=== PATIENT | male | born 1965 | race Caucasian/White ===

== ENCOUNTER 2017-04-01 20:28 | Emergency (ER) | payer BC, OTHER ==
[~2017-04-01] VITALS: Ht 172.7 cm; Wt 99.8 kg
[~2017-04-01 20:28] MED LIST: OLME40TA12 PO; [UNRECOGNIZED DRUG - REMARK]
[2017-04-01] MEDS ORDERED: ASPIRIN 81 MG TAB.CHEW PO ONE (20:45)
[2017-04-01] MEDS ORDERED: NITROGLYCERIN SUBLINGUAL 0.4 MG BOTTLE OF 25. SL PRN (20:45)
[2017-04-01 21:06] LABS: BASO # 0.1 x10^3/uL (0.0-0.2); BASO % 1 % (0-3); EOS % 0 % (0-3); HEMATOCRIT 52.5 % (39.0-53.0); HEMOGLOBIN 18.2 g/dL (13.0-17.5); LYMPH # 1.9 x10^3/uL (1.0-4.8); LYMPH % 18 % (24-48); MEAN CORPUSCULAR HEMOGLOBIN 32 pg (25-35); MEAN CORPUSCULAR HGB CONC 35 g/dL (31-37); MEAN CORPUSCULAR VOLUME 92 fL (79-100); MONO # 0.5 x10^3/uL (0.0-1.1); MONO % 5 % (0-9); NEUT # 8.2 x10^3uL (1.8-7.7); NEUT % 76 % (31-73); PLATELET COUNT 264 x10^3/uL (140-400); RED BLOOD COUNT 5.73 x10^6/uL (4.30-5.70); RED CELL DISTRIBUTION WIDTH 13.2 % (11.5-14.5); WHITE BLOOD COUNT 10.7 x10^3/uL (4.0-11.0)
[2017-04-01] MEDS ORDERED: methylPREDNISolone SOD SUCC PF 125 MG/2 ML VIAL. IV ONE (21:15)
[2017-04-01] MEDS ORDERED: GLUCAGON,HUMAN RECOMBINANT 1 MG KIT. IV ONE (21:15)
[2017-04-01] MEDS ORDERED: LIDO:MAALOX 1:1 20 ML SINGLE DOSE PO ONE (21:15)
[2017-04-01] MEDS ORDERED: ONDANSETRON PF 4 MG/2 ML VIAL. IV ONE (21:15)
[2017-04-01 21:17] LABS: ALBUMIN 4.1 g/dL (3.4-5.0); ALBUMIN/GLOBULIN RATIO 1.2 (1.0-1.7); CALCIUM 9.3 mg/dL (8.5-10.1); CREATININE 1.3 mg/dL (0.7-1.3); GFR 58.2; POTASSIUM 3.7 mmol/L (3.5-5.1); TOTAL BILIRUBIN 0.5 mg/dL (0.2-1.0); TOTAL PROTEIN 7.5 g/dL (6.4-8.2)
[2017-04-01] MEDS ORDERED: HYDROmorphone PF 2 MG/ML VIAL ONE (22:26)
[2017-04-01] MEDS ORDERED: FAMOTIDINE 20 MG/2 ML VIAL IVP ONE (22:30)
[2017-04-01] MEDS ORDERED: CONTRAST GIVEN MC PRN (22:30)
[2017-04-01] MEDS ORDERED: HYDROmorphone PF 1 MG/ML DISP.SYRIN IV ONE (22:30)
[2017-04-01] MEDS ORDERED: KETOROLAC 30 MG/ML VIAL. IV ONE (22:30)
[2017-04-01] MEDS ORDERED: IV NORMAL SALINE 1,000ML 1,000 ML IV SCH (22:30)
--- NOTE | 2017-04-01 22:38 | EKG ---
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
[2017-04-01] MEDS ORDERED: IOHEXOL 300 MG/ML 75 ML VIAL. IV ONE (23:00)
[2017-04-01] MEDS ORDERED: HYDROmorphone PF 2 MG/ML VIAL IV ONE (23:00)
--- NOTE | 2017-04-01 23:12 | RAD ---
CT scan of the abdomen and pelvis with contrast 04/01/2017 CLINICAL HISTORY: Epigastric pain with elevated lipase. TECHNIQUE: After the intravenous administration of 75 cc of Omnipaque 300 only, contiguous, 5 mm axial sections were obtained through the abdomen and pelvis. One or more of the following individualized dose reduction techniques were utilized for this study: 1. Automated exposure control. 2. Adjustment of the mA and/or kV according to patient size. 3. Use of iterative reconstruction technique. FINDINGS: Comparison study is dated 07/02/2014. Images through the lung bases demonstrate minimal dependent subsegmental atelectasis bilaterally. Small calcified granulomas are seen bilaterally. The liver parenchyma has a decreased attenuation consistent with mild fatty infiltration. The spleen, adrenal glands and kidneys are within normal limits. The pancreas is within normal limits. No focal abnormality of the pancreas is seen. No inflammatory changes are seen surrounding the pancreas. No abnormal fluid collection is seen to suggest evidence of a pancreatic pseudocyst. The abdominal aorta tapers normally. The gallbladder is slightly contracted. No free fluid or free air is within the abdomen. There is no evidence of bowel obstruction. Surgical clips are seen posterior to the cecum consistent with an appendectomy. Images through the pelvis demonstrate the urinary bladder distended with urine. No free fluid is seen. Small to moderate-sized fat-containing inguinal hernias are seen bilaterally. Minimal S-shaped curvature of the thoracolumbar spine is seen. Degenerative changes are seen involving the lower thoracic and throughout the lumbar spine. IMPRESSION: No acute abnormality is seen. Electronically signed by: Aj Hutson MD (04/01/2017 11:09 PM) [facility]
--- NOTE | 2017-04-01 23:55 | PHYS DOC ---
General Chief Complaint: CHEST PAIN Stated Complaint: SOB/CHEST PAIN Time Seen by MD: 20:36 Source: patient Exam Limitations: no limitations Problems: History of Present Illness Initial Comments Patient is a 51-year-old male complaining of chest and epigastric pain. Patient was initially reported by staff to me as chest pain, I was occupied by stephanie thomas so verbal chest pain orders initiated. Upon my evaluation patient states that on March 25 he had 2 bites of steak immediately after which he developed epigastric pain with foreign body sensation and an urge to vomit. He saw his primary care doctor who diagnosed viral gastroenteritis and constipation and gave magnesium citrate for symptomatic care as well as GI referral due to the patient's history of esophageal strictures. Symptoms were manageable and the patient tried to avoid solid foods. Patient states that on March 30 he had one bite of prime rib with recurrence of symptoms. He's been trying to manage at home and today about 1700 symptoms worsened again after a bite of crab salad. Symptoms are now described as constant and severe, he has a severe epigastric feeling of pain and foreign body sensation. He belches and retches almost constantly but has had no vomiting. He is tolerating his secretions, he becomes tachycardic and hypertensive when the symptoms worsen and had no relief with nitroglycerin sublingually on ED arrival. He says he feels "cleaned out" and has had loose stools due to the magnesium citrate. He denies diaphoresis arm or neck symptoms , no headache or focal neurologic deficits no chills sweats or myalgias. Timing/Duration: other Severity: severe Modifying Factors: worse with eating Associated Symptoms: chest pain, nausea/vomiting, other Allergies: Coded Allergies: No Known Drug Allergies (Unverified , 04/01/17) Past Medical History Medical History: GERD, hypertension, other (esophageal strictures) Surgical History: noncontributory Social History Smoker: non-smoker Alcohol: occasionally Drugs: none Review of Systems Constitutional: denies chills, denies diaphoresis, denies fever, denies malaise EENTM: denies ear pain, denies nose pain, denies throat pain, denies throat swelling, denies mouth pain, denies mouth swelling Respiratory: denies cough, shortness of breath, denies wheezing Cardiovascular: chest pain, denies palpitations, denies syncope Gastrointestinal: abdominal pain, nausea, denies vomiting Musculoskeletal: denies back pain, denies joint swelling, denies neck pain Psychiatric/Neurological: denies headache, denies numbness, denies paresthesia Physical Exam General Appearance: WD/WN, severe distress Eyes: bilateral eye PERRL, bilateral eye EOMI, bilateral eye other ( conjunctivae injected bilaterally) Ear, Nose, Throat: hearing grossly normal, normal ENT inspection, normal pharynx Neck: non-tender, full range of motion, supple Respiratory: chest non-tender, normal breath sounds, no respiratory distress Cardiovascular: normal peripheral pulses, regular rate, rhythm Gastrointestinal: normal bowel sounds, non tender, soft, no organomegaly Rectal: deferred Back: no CVA tenderness, no vertebral tenderness Extremities: non-tender, normal inspection Neurologic/Psychiatric: 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 Interpreted by me. AP chest: Increased perihilar markings with no focal consolidation or effusion interpreted by me. Lipase 542 otherwise unremarkable lab workup No relief with Solu-Medrol 125 mg, glucagon 1 mg, again. Zofran 4 mg, Toradol 30 mg, and Pepcid 20 mg given over time. Due to elevated lipase CT evaluation initiated. PATIENT: TANIYA BOWMAN ACCOUNT: [id number] : 1965 LOCATION: ER AGE: 51 SEX: M EXAM STATUS: REG ER ORD. PHYSICIAN: JEROD BREEN DO REASON: epigastric pain, n/v, elev lipase PROCEDURE: CT ABD PELV W/ IV CONTRST ONLY CT scan of the abdomen and pelvis with contrast 04/01/2017 CLINICAL HISTORY: Epigastric pain with elevated lipase. TECHNIQUE: After the intravenous administration of 75 cc of Omnipaque 300 only, contiguous, 5 mm axial sections were obtained through the abdomen and pelvis. One or more of the following individualized dose reduction techniques were utilized for this study: 1. Automated exposure control. 2. Adjustment of the mA and/or kV according to patient size. 3. Use of iterative reconstruction technique. FINDINGS: Comparison study is dated 07/02/2014. Images through the lung bases demonstrate minimal dependent subsegmental atelectasis bilaterally. Small calcified granulomas are seen bilaterally. The liver parenchyma has a decreased attenuation consistent with mild fatty infiltration. The spleen, adrenal glands and kidneys are within normal limits. The pancreas is within normal limits. No focal abnormality of the pancreas is seen. No inflammatory changes are seen surrounding the pancreas. No abnormal fluid collection is seen to suggest evidence of a pancreatic pseudocyst. The abdominal aorta tapers normally. The gallbladder is slightly contracted. No free fluid or free air is within the abdomen. There is no evidence of bowel obstruction. Surgical clips are seen posterior to the cecum consistent with an appendectomy. Images through the pelvis demonstrate the urinary bladder distended with urine. No free fluid is seen. Small to moderate-sized fat-containing inguinal hernias are seen bilaterally. Minimal S-shaped curvature of the thoracolumbar spine is seen. Degenerative changes are seen involving the lower thoracic and throughout the lumbar spine. IMPRESSION: No acute abnormality is seen. Electronically signed by: Aj Hutson MD (04/01/2017 11:09 PM) [facility] DICTATED AND SIGNED BY: AJ HUTSON MD DATE: 04/01/17 [id number] CC: MALVIN FERRERA MD; JEROD BREEN DO ~ Prior to CT evaluation patient did receive 0.5 mg Dilaudid intravenously. He says that while the feeling was still there while the medication was working "I didn't care." Upon discussing CT results symptoms had returned. The patient does not feel like he can tolerate these symptoms at home and it is unlikely EGD could be scheduled as outpatient in a timely manner. Patient is agreeable to transfer to [facility] for inpatient admission and symptomatic care with probable GI consultation. [id number]: I discussed the patient with animal surgeon hospitalist Dr. Berg. He agrees to accept the patient for MedSurg admission. Impressions: Esophageal foreign body sensation and possible partial obstruction Intractable pain and nausea History of esophageal strictures A second dose dilaudid given, ativan 1mg IV with analgesia 2L O2 NC applied as sats temporarily dropped after meds to 89%. Departure Disposition: 02 XFER SHT-TRM HOSP Condition: STABLE Additional Instructions: EMS transfer to [facility] for MedSurg admission Dr. Berg is accepting. JEROD BREEN DO Apr 01, 2017 23:55
[2017-04-02] VITALS: BP 145/100
[2017-04-02] MEDS ORDERED: LORazepam 2 MG/ML VIAL IV ONE (00:30)
--- NOTE | 2017-04-02 07:25 | RAD ---
Portable chest, 04/01/2017: History: Chest pain Comparison is made to a study from 07/02/2014. The heart size and pulmonary vascularity are normal. No pulmonary infiltrates are seen. There is no evidence of pleural fluid. IMPRESSION: No acute cardiopulmonary abnormality is detected.
== END 2017-04-02 01:05 | disposition short-term general hospital (02) ==
LOC: ER 20:28
DX: T18.128A Food in esophagus causing other injury, initial encounter (principal); R10.13 Epigastric pain; I10 Essential (primary) hypertension; K21.9 Gastro-esophageal reflux disease without esophagitis; X58.XXXA Exposure to other specified factors, initial encounter; Y93.89 Activity, other specified; Y99.8 Other external cause status; Y92.89 Other specified places as the place of occurrence of the external cause
CPT/HCPCS: 36415; 71045; 74177; 80053; 82150; 82550; 83690; 83880; 84484; 85025; 85379; 93005; 96361; 96374; 96375; 99285; J1170; J1610; J1885; J2060; J2405; J2930; Q9967; S0028; J7030

== ENCOUNTER → 2017-04-13 | Outpatient (CLI) | payer BC ==
[2017-04-02] VITALS: BP 145/100
--- NOTE | 2017-04-13 13:35 | RAD ---
CT maxillofacial without contrast 04/13/2017 Clinical indication: Sinusitis. Comparison: None. Technique: Multiple CT images of the maxillofacial region were obtained without contrast. PQRS Compliance Statement: One or more of the following individualized dose reduction techniques were utilized for this examination: 1. Automated exposure control 2. Adjustment of the mA and/or kV according to patient size 3. Use of iterative reconstruction technique Findings: There is mild right maxillary sinus mucosal thickening with dependent aerated secretions. There is opacification of the right maxillary ostium, though the infundibulum and hiatus semilunaris remain patent. Left maxillary, ethmoid, frontal and sphenoid sinuses are well aerated. The mastoid air cells are well aerated. The left ostiomeatal unit is patent. There is a right middle korina bullosa noted. The globes and orbits are unremarkable. The intraconal fat is preserved. The intraocular muscles are symmetric. Impression: 1. Mild right maxillary sinus mucosal thickening with aerated secretions may represent acute sinusitis. 2. Opacification of the right maxillary ostium.
== END | disposition home or self-care (01) ==
LOC: CT 11:01
PROVIDERS: ATTEND Otolaryngology
DX: J32.0 Chronic maxillary sinusitis (principal); I10 Essential (primary) hypertension
CPT/HCPCS: 70486

== ENCOUNTER 2018-11-18 20:52 | Emergency (ER) | payer BC ==
[~2018-11-18] VITALS: Ht 172.7 cm; Wt 94.5 kg
--- NOTE | 2018-11-18 21:13 | PHYS DOC ---
Past History Past Medical History: GERD, Hypertension Past Surgical History: Appendectomy Smoking: Non-smoker, Chew Additional Smoking Information: chews tobacco Alcohol Use: Heavy Additional Alcohol Information: everyother day half a glass of vodka Drug Use: None Adult General Chief Complaint Chief Complaint: DYSPNEA/RESPIRATOY DISTRESS HPI HPI Patient is a 53-year-old male, with a history of hypertension and GERD, who presents to the emergency department for evaluation. He states for the past 9 days, he has had a sensation that something is closing up inside his chest in his throat. He does report some generalized pain in his midsternal area, which has been present for the past 9 days. He saw his PCP 2 days ago and was diagnosed with a sinus infection, and when he did not improve, was prescribed Augmentin yesterday. He has had some nasal congestion, but no significant cough. He denies any pleuritic or exertional pain. Prior to arrival he took her family members nitroglycerin as well as some Benadryl, and somewhat sleepy after taking the Benadryl, but his states that this is more sleepy than he normally would be in response to Benadryl. He has not had any fevers or chills, numbness, or weakness. There are no alleviating or exacerbating factors to his symptoms otherwise. Review of Systems Review of Systems Constitutional: Denies fever or chills [] Eyes: Denies change in visual acuity, redness, or eye pain [] HENT: Denies otalgia or sore throat. Reports mild nasal congestion. [] Respiratory: Denies cough or voice changes.[] Cardiovascular: No additional information not addressed in HPI [] GI: Denies abdominal pain, nausea, vomiting, bloody stools or diarrhea [] : Denies dysuria or hematuria [] Musculoskeletal: Denies back pain or joint pain [] Integument: Denies rash or skin lesions [] Neurologic: Denies headache, focal weakness or sensory changes [] Endocrine: Denies polyuria or polydipsia [] All other systems were reviewed and found to be within normal limits, except as documented in this note. Current Medications Current Medications Current Medications Medications (Trade) Dose Ordered Sig/Luzmaria Start Time Stop Time Status Last Admin Dose Admin Aspirin (Children'S Aspirin) 324 mg 1X ONCE 11/18/18 21:15 11/18/18 21:16 UNV Allergies Allergies Allergies Coded Allergies Type Severity Reaction Last Updated Verified No Known Drug Allergies 04/01/17 No Physical Exam Physical Exam PHYSICAL EXAM: CONSTITUTIONAL: Well developed, well nourished HEAD: normocephalic, atraumatic EENT: PERRL, EOMI. Conjunctivae normal color, sclerae non-icteric; moist mucous membranes. The oropharynx is nonerythematous. NECK: Supple, non-tender; no meningismus. There is no stridor. Voice is normal. LUNGS: Lungs CTA, breathing even and unlabored. Normal air movement. HEART: Regular rate and rhythm, no murmur CHEST: No deformity; non-tender ABDOMEN: The abdomen is soft, and non-tender, no masses or bruits. EXTREM: Normal ROM; no deformity, no calf tenderness. Normal pulses palpable in all extremities. There is no pedal edema. SKIN: No rash; no diaphoresis NEURO: somnolent but arousable, normal speech and cognition; CN's grossly intact; strength grossly intact without focal deficit. BACK: No CVA TTP. Current Patient Data Vital Signs Vital Signs Date Time Temp Pulse Resp B/P (MAP) Pulse Ox O2 Delivery O2 Flow Rate FiO2 11/18/18 20:52 98.4 71 18 96 Room Air Lab Results Laboratory Tests Test 11/18/18 21:06 11/18/18 21:10 Blood Gas pH 7.40 Blood Gas PCO2 35 mmHg Blood Gas PO2 80 mmHg Blood Gas HCO3 22 mmol/L Arterial Bld O2 Saturation (Calc) 96 % FiO2 21 % White Blood Count 7.6 x10^3/uL Red Blood Count 5.14 x10^6/uL Hemoglobin 16.2 g/dL Hematocrit 46.5 % Mean Corpuscular Volume 90 fL Mean Corpuscular Hemoglobin 31 pg Mean Corpuscular Hemoglobin Concent 35 g/dL Red Cell Distribution Width 12.8 % Platelet Count 244 x10^3/uL Neutrophils (%) (Auto) 47 % Lymphocytes (%) (Auto) 40 % Monocytes (%) (Auto) 8 % Eosinophils (%) (Auto) 3 % Basophils (%) (Auto) 1 % Neutrophils # (Auto) 3.6 x10^3uL Lymphocytes # (Auto) 3.0 x10^3/uL Monocytes # (Auto) 0.6 x10^3/uL Eosinophils # (Auto) 0.3 x10^3/uL Basophils # (Auto) 0.1 x10^3/uL D-Dimer (Deisy) < 0.19 mg/L Sodium Level 140 mmol/L Potassium Level 3.5 mmol/L Chloride Level 103 mmol/L Carbon Dioxide Level 28 mmol/L Anion Gap 9 Blood Urea Nitrogen 13 mg/dL Creatinine 1.1 mg/dL Estimated GFR (Cockcroft-Gault) 70.0 BUN/Creatinine Ratio 12 Glucose Level 92 mg/dL Lactic Acid Level 1.9 mmol/L Calcium Level 9.1 mg/dL Magnesium Level 2.1 mg/dL Total Bilirubin 0.4 mg/dL Aspartate Amino Transf (AST/SGOT) 17 U/L Alanine Aminotransferase (ALT/SGPT) 35 U/L Alkaline Phosphatase 70 U/L Troponin I Quantitative < 0.017 ng/mL QJ-Sul-I-Type Natriuretic Peptide 40 pg/mL Total Protein 7.0 g/dL Albumin 3.9 g/dL Albumin/Globulin Ratio 1.3 Current Medications Medications (Trade) Dose Ordered Sig/Ulzmaria Route PRN Reason Start Time Stop Time Status Last Admin Dose Admin Aspirin (Children'S Aspirin) 324 mg 1X ONCE PO 11/18/18 21:15 11/18/18 21:16 DC 11/18/18 21:40 EKG EKG Normal sinus rhythm at a rate of 60 beats for minute, left axis deviation, normal intervals. There are no acute ischemic ST/T changes.[] Radiology/Procedures Radiology/Procedures []ER physician preliminary chest x-ray interpretation: No acute disease. Course & Med Decision Making Course & Med Decision Making Pertinent Labs and Imaging studies reviewed. (See chart for details) []10:45 PM: The patient's condition remains stable. I discussed the uncertain etiology of his symptoms. I discussed overnight hospitalization for further observation and monitoring but the patient declines, stating he would rather go home. I discussed the uncertain etiology of his symptoms although he does have an appointment with GI this coming Thursday for further evaluation of his GERD. I discussed importance of close follow-up and return precautions in detail. 11:30 PM: Soon after the patient's departure, the radiologist report he came available for the patient's x-ray, raising the possibility of an occult pneumonia. The patient was put on amoxicillin/clavulanic acid by his primary care provider yesterday and he was encouraged to continue that prior to leaving. Clinically does not have pneumonia, but rather an upper respiratory infection. Dragon Disclaimer Dragon Disclaimer This electronic medical record was generated, in whole or in part, using a voice recognition dictation system. Departure Departure: Impression: Primary Impression: Dyspnea Disposition: HOME, SELF-CARE Condition: STABLE Referrals: ETHEL ESPINAL MD (PCP) Patient Instructions: Acute Bronchitis, Shortness of Breath, Upper Respiratory Infection, Adult RAF BLACKBURN MD Nov 18, 2018 21:13
[2018-11-18] MEDS ORDERED: ASPIRIN 81 MG TAB.CHEW PO ONE (21:15)
[2018-11-18 21:47] LABS: BASO # 0.1 x10^3/uL (0.0-0.2); BASO % 1 % (0-3); EOS # 0.3 x10^3/uL (0.0-0.7); EOS % 3 % (0-3); HEMATOCRIT 46.5 % (39.0-53.0); HEMOGLOBIN 16.2 g/dL (13.0-17.5); LYMPH % 40 % (24-48); MEAN CORPUSCULAR HEMOGLOBIN 31 pg (25-35); MEAN CORPUSCULAR HGB CONC 35 g/dL (31-37); MEAN CORPUSCULAR VOLUME 90 fL (79-100); MONO # 0.6 x10^3/uL (0.0-1.1); MONO % 8 % (0-9); NEUT # 3.6 x10^3uL (1.8-7.7); NEUT % 47 % (31-73); PLATELET COUNT 244 x10^3/uL (140-400); RED BLOOD COUNT 5.14 x10^6/uL (4.30-5.70); RED CELL DISTRIBUTION WIDTH 12.8 % (11.5-14.5); WHITE BLOOD COUNT 7.6 x10^3/uL (4.0-11.0)
[2018-11-18 22:09] LABS: ALBUMIN 3.9 g/dL (3.4-5.0); ALBUMIN/GLOBULIN RATIO 1.3 (1.0-1.7); CALCIUM 9.1 mg/dL (8.5-10.1); CREATININE 1.1 mg/dL (0.7-1.3); MAGNESIUM 2.1 mg/dL (1.8-2.4); POTASSIUM 3.5 mmol/L (3.5-5.1); TOTAL BILIRUBIN 0.4 mg/dL (0.2-1.0)
[2018-11-18 22:09] LABS: BGAS PH 7.4 (7.35-7.46)
[2018-11-18 22:53] LABS: BACTERIA,URINE 0 /HPF (0-FEW); BILIRUBIN,URINE NEG (NEG); CLARITY,URINE CLEAR; COLOR,URINE STRAW; GLUCOSE,URINE NEG (NEG); NITRITE,URINE NEG (NEG); RBC,URINE 0 /HPF (0-2); SQUAMOUS EPITHELIAL CELL,UR OCC /LPF; UROBILINOGEN,URINE 0.2 mg/dL (0.2 mg/dL); WBC,URINE OCC /HPF (0-4)
[2018-11-18 23:02] VITALS: BP 112/73
[2018-11-18] MEDS ORDERED: DEXAMETHASONE SOD PHOS 10 MG/ML VIAL ONE (23:09)
[2018-11-18] MEDS ORDERED: DEXAMETHASONE SOD PHOS 10 MG/ML VIAL PO ONE (23:15)
--- NOTE | 2018-11-18 23:18 | RAD ---
Exam: Chest 2 views INDICATION: Shortness of breath TECHNIQUE: Frontal and lateral views of the chest Comparisons: None FINDINGS: The cardiomediastinal silhouette and pulmonary vessels are within normal limits. Retrocardiac opacity seen best on lateral view. Remaining lungs are clear. IMPRESSION: Cardiac opacity, favored to be infectious in etiology. Recommend reimaging post treatment to ensure resolution. Electronically signed by: Chandrika Foley MD (11/18/2018 11:15 PM) [facility]
--- NOTE | 2018-11-19 11:26 | EKG ---
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
== END 2018-11-18 23:20 | disposition home or self-care (01) ==
LOC: ER 20:52
DX: R06.00 Dyspnea, unspecified (principal); R07.2 Precordial pain; R09.81 Nasal congestion; K21.9 Gastro-esophageal reflux disease without esophagitis; I10 Essential (primary) hypertension; F17.220 Nicotine dependence, chewing tobacco, uncomplicated
CPT/HCPCS: 36415; 36600; 71046; 80053; 81001; 82803; 83605; 83735; 83880; 84484; 85025; 85379; 87040; 93005; 99285; J1100